=== PATIENT | male | born 1960 | race Two or more races ===

== ENCOUNTER 2017-04-19 06:05 | Emergency (ER) | payer OTHER ==
[~2017-04-19] VITALS: Ht 170.2 cm; Wt 81.6 kg
[~2017-04-19 06:05] MED LIST: AMOXICILLIN500 MG ORAL; MYLANTA30 M1 PO; RANITIDINE HCL150 MG ORAL; TUMS200 M1 PO
[2017-04-19] MEDS ORDERED: NKM (06:16)
[2017-04-19 06:23] VITALS: BP 134/95
[2017-04-19 06:35] LABS: APPEARANCE,URINE CLEAR; BILIRUBIN, URINE NEGATIVE (NEGATIVE); COLOR,URINE PALE YELLOW; GLUCOSE, URINE (UA) NEGATIVE (NEGATIVE); KETONES,URINE NEGATIVE (NEGATIVE); LEUKOCYTE ESTERASE ,URINE 1+ (NEGATIVE); NITRITE,URINE NEGATIVE (NEGATIVE); PH,URINE 8 (4.5-8.0); PROTEIN,URINE NEGATIVE (NEGATIVE); UROBILINOGEN,URINE NORMAL MG/DL (0.0-1.0)
[2017-04-19 06:40] LABS: BASOPHILS % (AUTO) 0.8 % (0.0-2.0); HEMATOCRIT 40.1 % (42.0-52.0); HEMOGLOBIN 13.1 G/DL (14.2-18.0); LYMPHOCYTES % (AUTO) 20.1 % (20.0-45.0); MEAN CORPUSCULAR VOLUME 90 FL (80-99); MONOCYTES % (AUTO) 10.9 % (1.0-10.0); NEUTROPHILS % (AUTO) 65.1 % (45.0-75.0); PLATELET COUNT 508 K/UL (150-450); RED BLOOD COUNT 4.46 M/UL (4.70-6.10); WHITE BLOOD COUNT 6.9 K/UL (4.8-10.8)
[2017-04-19 06:54] LABS: ALANINE AMINOTRANSFERASE 23 U/L (12-78); ALBUMIN 2.9 G/DL (3.4-5.0); ALBUMIN/GLOBULIN RATIO 0.5 (1.0-2.7); ALKALINE PHOSPHATASE 91 U/L (46-116); ANION GAP 8 mmol/L (5-15); ASPARTATE AMINO TRANSFERASE 22 U/L (15-37); BILIRUBIN,TOTAL 0.4 MG/DL (0.2-1.0); BLOOD UREA NITROGEN 9 mg/dL (7-18); CALCIUM 8.7 MG/DL (8.5-10.1); CARBON DIOXIDE 28 MMOL/L (21-32); CHLORIDE 101 MMOL/L (98-107); POTASSIUM 3.5 MMOL/L (3.5-5.1); SODIUM 137 MMOL/L (136-145)
--- NOTE | 2017-04-19 07:07 | Emergency Room Report ---
History of Present Illness General Chief Complaint: Male Urogenital Problems Source: Patient Present Illness HPI Patient presents with complaints of pressure in the suprapubic area he reports that he is able to void and then he feels that he has to void again soon after Denies any flank pain Denies any chest pain or shortness of breath denies any burning sensation Patient reports that the symptom has been ongoing for the past several weeks Points to the suprapubic flaring up bilaterally 3/10 pressure-like sensation Allergies: Coded Allergies: No Known Allergies (Unverified , 05/27/14) Patient History Past Medical History: see triage record Pertinent Family History: none Reviewed Nursing Documentation: PMH: Agreed, PSxH: Agreed Nursing Documentation-PMH Past Medical History: No Stated History Hx Hypertension: Yes Hx Gastrointestinal Problems: Yes - Heartburn Review of Systems All Other Systems: negative except mentioned in HPI Physical Exam Vital Signs Date Time Temp Pulse Resp B/P (MAP) Pulse Ox O2 Delivery O2 Flow Rate FiO2 04/19/17 06:12 98.8 105 16 142/105 96 Room Air Sp02 EP Interpretation: reviewed, normal General Appearance: well appearing, no apparent distress Head: normocephalic, atraumatic Eyes: bilateral eye PERRL, bilateral eye EOMI ENT: hearing grossly normal, normal pharynx, TMs + canals normal, uvula midline Neck: full range of motion, supple, no meningismus, no bony tend Respiratory: lungs clear, normal breath sounds, no rhonchi, no respiratory distress, no retraction, no accessory muscle use Cardiovascular #1: normal peripheral pulses, regular rate, rhythm, no edema, no gallop, no JVD, no murmur Gastrointestinal: normal bowel sounds, no mass, no organomegaly, non-distended , no guarding, no hernia, no pulsatile mass, no rebound, other - Uncomfortable on palpation of the mid suprapubic area Genitourinary: no CVA tenderness Musculoskeletal: normal inspection Neurologic: oriented x3, responsive, 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, motor strength/ tone normal, sensory intact Psychiatric: mood/affect normal Skin: normal color, no rash, warm/dry, palpation normal Lymphatic: normal inspection, no adenopathy Medical Decision Making Diagnostic Impression: Primary Impression: UTI (urinary tract infection) Additional Impressions: Urinary frequency Abdominal pain ER Course With the history exam and presentation, multiple differentials considered, including but not limited to appendicitis, gastritis, cholecystitis, diverticulitis Patient's symptoms appear to be mainly suprapubic However given the discomfort in the presentation lack of any obvious infection CAT scan imaging was done Does not show any obvious acute pathology patient requires close followup also evaluation of possible prostate pathology including infection versus cancer The patient stable for close followup, Labs Test 04/19/17 06:15 04/19/17 06:30 Urine Color Pale yellow Urine Appearance Clear Urine pH 8 (4.5-8.0) Urine Specific [place] 1.010 (1.005-1.035) Urine Protein Negative (NEGATIVE) Urine Glucose (UA) Negative (NEGATIVE) Urine Ketones Negative (NEGATIVE) Urine Occult Blood 2+ (NEGATIVE) Urine Nitrite Negative (NEGATIVE) Urine Bilirubin Negative (NEGATIVE) Urine Urobilinogen Normal MG/DL (0.0-1.0) Urine Leukocyte Esterase 1+ (NEGATIVE) Urine RBC 2-4 /HPF (0 - 0) Urine WBC 0-2 /HPF (0 - 0) Urine Squamous Epithelial Cells Occasional /LPF Urine Bacteria Occasional /HPF (NONE) White Blood Count 6.9 K/UL (4.8-10.8) Red Blood Count 4.46 M/UL (4.70-6.10) Hemoglobin 13.1 G/DL (14.2-18.0) Hematocrit 40.1 % (42.0-52.0) Mean Corpuscular Volume 90 FL (80-99) Mean Corpuscular Hemoglobin 29.5 PG (27.0-31.0) Mean Corpuscular Hemoglobin Concent 32.7 G/DL (32.0-36.0) Red Cell Distribution Width 11.0 % (11.6-14.8) Platelet Count 508 K/UL (150-450) Mean Platelet Volume 4.7 FL (6.5-10.1) Neutrophils (%) (Auto) 65.1 % (45.0-75.0) Lymphocytes (%) (Auto) 20.1 % (20.0-45.0) Monocytes (%) (Auto) 10.9 % (1.0-10.0) Eosinophils (%) (Auto) 3.0 % (0.0-3.0) Basophils (%) (Auto) 0.8 % (0.0-2.0) Sodium Level 137 MMOL/L (136-145) Potassium Level 3.5 MMOL/L (3.5-5.1) Chloride Level 101 MMOL/L (98-107) Carbon Dioxide Level 28 MMOL/L (21-32) Anion Gap 8 mmol/L (5-15) Blood Urea Nitrogen 9 mg/dL (7-18) Creatinine 1.0 MG/DL (0.55-1.30) Estimat Glomerular Filtration Rate > 60 mL/min (>60) Glucose Level 96 MG/DL (74-106) Calcium Level 8.7 MG/DL (8.5-10.1) Total Bilirubin 0.4 MG/DL (0.2-1.0) Aspartate Amino Transf (AST/SGOT) 22 U/L (15-37) Alanine Aminotransferase (ALT/SGPT) 23 U/L (12-78) Alkaline Phosphatase 91 U/L (46-116) Total Protein 8.4 G/DL (6.4-8.2) Albumin 2.9 G/DL (3.4-5.0) Globulin 5.5 g/dL Albumin/Globulin Ratio 0.5 (1.0-2.7) CT/MRI/US Diagnostic Results CT/MRI/US Diagnostic Results : Impression CT abdomen pelvisImpression: No acute findings in the abdomen identified. Small bilateral pleural effusions Small pericardial effusion. Hiatal hernia Small right inguinal hernia containing fat Last Vital Signs Date Time Temp Pulse Resp B/P (MAP) Pulse Ox O2 Delivery O2 Flow Rate FiO2 04/19/17 06:23 98.8 107 27 134/95 99 Room Air Status: improved Disposition: HOME, SELF-CARE Condition: Improved Scripts Tamsulosin HCl (Flomax) 0.4 Mg Cap.er.24h 0.4 MG ORAL DAILY for 5 Days, CAP Prov: GUMARO RICH D.O. 04/19/17 Trimethoprim/Sulfamethoxazole 160/800* (BACTRIM DS TABLET*) 1 Each Tablet 1 TAB ORAL Q12H, #14 TAB 0 Refills Prov: GUMARO RICH D.O. 04/19/17 Referrals: NOT CHOSEN IPA/MD,REFERRING (PCP) Additional Instructions: Patient is provided with the discharge instructions notified to follow up with primary doctor in the next 2-3 days otherwise return to the er with any worsening symptoms. Please note that this report is being documented using DRAGON technology. This can lead to erroneous entry secondary to incorrect interpretation by the dictating instrument. GUMARO RICH D.O. Apr 19, 2017 07:07
[2017-04-19 07:37] VITALS: BP 122/94
[2017-04-19] MEDS ORDERED: FLOMAX0.4 MG ORAL (08:45)
[2017-04-19] MEDS ORDERED: BACTRIM DS TAB1 EAC1 ORAL (08:45)
[2017-04-19 08:56] VITALS: BP 123/95
--- NOTE | 2017-04-19 09:48 | Diagnostic Imaging Report ---
Indication: Abdominal pain Technique: Continuous helical transaxial imaging of the abdomen and pelvis was obtained from the lung bases to the pubic symphysis. No intravenous contrast was administered. Coronal 2-D reformats were also obtained. Total Dose length Product (DLP): [address] Dose Index Volume (CTDIvol): 2.15, 15.23 mGy Comparison: none Findings: Small bilateral pleural effusions are present. There is a small pericardial effusion present. Small hiatal hernia is present. There is no nephrolithiasis or hydronephrosis. There is a mild amount of perinephric stranding nonspecific in nature. Small nodes are seen in the right lower quadrant mesentery. The appendix is normal. No free fluid or free air or evidence of bowel obstruction demonstrated. Urinary bladder is unremarkable. There is a small right inguinal hernia containing fat. Impression: No acute findings in the abdomen identified. Small bilateral pleural effusions Small pericardial effusion. Hiatal hernia Small right inguinal hernia containing fat The CT scanner at [facility] is accredited by the [employer] and the scans are performed using dose optimization techniques as appropriate to a performed exam including Automatic Exposure control.
--- NOTE | 2017-04-19 09:48 | Diagnostic Imaging Report ---
Indication: Abdominal pain Technique: Continuous helical transaxial imaging of the abdomen and pelvis was obtained from the lung bases to the pubic symphysis. No intravenous contrast was administered. Coronal 2-D reformats were also obtained. Total Dose length Product (DLP): [address] Dose Index Volume (CTDIvol): 2.15, 15.23 mGy Comparison: none Findings: Small bilateral pleural effusions are present. There is a small pericardial effusion present. Small hiatal hernia is present. There is no nephrolithiasis or hydronephrosis. There is a mild amount of perinephric stranding nonspecific in nature. Small nodes are seen in the right lower quadrant mesentery. The appendix is normal. No free fluid or free air or evidence of bowel obstruction demonstrated. Urinary bladder is unremarkable. There is a small right inguinal hernia containing fat. Impression: No acute findings in the abdomen identified. Small bilateral pleural effusions Small pericardial effusion. Hiatal hernia Small right inguinal hernia containing fat The CT scanner at [facility] is accredited by the [employer] and the scans are performed using dose optimization techniques as appropriate to a performed exam including Automatic Exposure control.
== END 2017-04-19 09:01 | disposition home or self-care (01) ==
LOC: EMR 06:49
DX: N39.0 Urinary tract infection, site not specified (principal); R35.0 Frequency of micturition; R10.30 Lower abdominal pain, unspecified; I10 Essential (primary) hypertension; K44.9 Diaphragmatic hernia without obstruction or gangrene; J90 Pleural effusion, not elsewhere classified; K40.90 Unilateral inguinal hernia, without obstruction or gangrene, not specified as recurrent
CPT/HCPCS: 36415; 74176; 80053; 81003; 85025; 99284

== ENCOUNTER 2017-12-06 23:34 | Emergency (ER) | payer OTHER ==
[~2017-12-06] VITALS: Ht 167.6 cm; Wt 85.7 kg
[~2017-12-06 23:34] MED LIST changes: +BACTRIM DS TAB1 EAC1 ORAL; +FLOMAX0.4 MG ORAL; +NKM
[2017-12-06] MEDS ORDERED: IBUPROFEN600 MG ORAL (23:57)
[2017-12-06] MEDS ORDERED: VALACYCLOVIR500 MG ORAL (23:57)
--- NOTE | 2017-12-06 23:57 | Emergency Room Report ---
History of Present Illness General Chief Complaint: General Complaint Source: Patient Present Illness HPI This a 57-year-old male with a history of hypertension. He presents with chief complaint of burning sensation in his body in a rash. Onset for last 3 days. No fever chills but no nausea no vomiting. Not itching. Never had this problem before. Nothing made it better. Nothing made it worse. Allergies: Coded Allergies: No Known Allergies (Unverified , 05/27/14) Patient History Past Medical History: see triage record, old chart reviewed, HTN Past Surgical History: other Pertinent Family History: none Social History: Denies: smoking Immunizations: other Reviewed Nursing Documentation: PMH: Agreed; PSxH: Agreed Nursing Documentation-PMH Hx Hypertension: Yes Hx Gastrointestinal Problems: Yes - Heartburn Review of Systems Eye: Denies: eye pain, blurred vision ENT: Denies: ear pain, nose congestion, throat swelling Respiratory: Denies: cough, shortness of breath Cardiovascular: Denies: chest pain, palpitations Gastrointestinal: Denies: abdominal pain, diarrhea, nausea, vomiting Musculoskeletal: Denies: back pain, joint pain Skin: Reports: rash Neurological: Denies: headache, numbness Endocrine: Denies: increased thirst, increased urine Hematologic/Lymphatic: Denies: easy bruising All Other Systems: negative except mentioned in HPI Physical Exam Vital Signs Date Time Temp Pulse Resp B/P (MAP) Pulse Ox O2 Delivery O2 Flow Rate FiO2 12/06/17 23:38 98.4 85 18 154/106 98 Room Air 98.4 vitals normal except for hypertension Sp02 EP Interpretation: reviewed, normal General Appearance: well appearing, no apparent distress, alert Head: normocephalic, atraumatic Eyes: bilateral eye PERRL, bilateral eye EOMI ENT: hearing grossly normal, normal pharynx Neck: full range of motion, supple, no meningismus Respiratory: chest non-tender, lungs clear, normal breath sounds Cardiovascular #1: regular rate, rhythm, no murmur Gastrointestinal: normal bowel sounds, non tender, no mass, no organomegaly, no bruit, non-distended Musculoskeletal: back normal, gait/station normal, normal range of motion Neurologic: alert, oriented x3 Psychiatric: mood/affect normal Skin: warm/dry, rash - Patient with a panic rash along the T8 distribution Medical Decision Making Diagnostic Impression: Primary Impression: Shingles Qualified Codes: B02.9 - Zoster without complications ER Course patient with zoster. No complications. Last Vital Signs Date Time Temp Pulse Resp B/P (MAP) Pulse Ox O2 Delivery O2 Flow Rate FiO2 12/06/17 23:38 98.4 85 18 154/106 98 Room Air 98.4 Status: unchanged Disposition: HOME, SELF-CARE Condition: Stable Scripts Ibuprofen* (MOTRIN*) 600 Mg Tablet 600 MG ORAL THREE TIMES A DAY, #30 TAB 0 Refills Prov: CALLUM CORDON M.D. 12/06/17 Valacyclovir Hcl* (VALTREX*) 500 Mg Tablet 1000 MG ORAL TID for 7 Days, TAB Prov: CALLUM CORDON M.D. 12/06/17 Additional Instructions: Follow-up with your doctor in 7 days. Return if symptom worsen. CALLUM CORDON M.D. Dec 06, 2017 23:57
[2017-12-07 00:22] VITALS: BP 154/106
[2017-12-07 00:26] VITALS: BP 154/106
== END 2017-12-07 00:26 | disposition home or self-care (01) ==
LOC: EMR 23:55
DX: B02.9 Zoster without complications (principal); I10 Essential (primary) hypertension
CPT/HCPCS: 99284

== ENCOUNTER 2018-04-10 08:33 | Inpatient (IN) | payer OTHER ==
[~2018-04-10] VITALS: Ht 165.1 cm; Wt 81.6 kg
[~2018-04-10 08:33] MED LIST changes: +IBUPROFEN600 MG ORAL; +VALACYCLOVIR500 MG ORAL
[2018-04-10] MEDS ORDERED: GABAPENTIN300 MG ORAL (08:44)
[2018-04-10] MEDS ORDERED: Capsaicin 0.075% Cream TOPIC STA (08:57)
[2018-04-10] MEDS ORDERED: Nitroglycerin 2% oint pkt TOPIC ONE (09:00)
--- NOTE | 2018-04-10 09:09 | Emergency Room Report ---
History of Present Illness General Chief Complaint: Dizziness Source: Patient, Family Member Present Illness HPI Patient was in sikh today and nearly passed out. He felt diaphoretic and weak. He was standing at the time and sat down. It lasted for quite a few minutes. The he had slight nausea but not much. Last night he felt nauseated but denies having chest pain. The patient had treatment for shingles on the left side of his chest 4 months ago. He still has 4-5/10 pain there. There is chest pain however that is also exertional and intermittent. He's been taking gabapentin but tries not to take that medication. He also has exertional chest pain when he works. The patient is a junior manufacturing engineer. This is worse when it's hot out. He occasionally has to rest when he is working to relieve the pain in his left side of his chest. Risk factors for cardiac disease: Family history, high cholesterol and intermittent smoking. He denies hypertension and diabetes. His father had his first heart attack at age 50 and in his 60s. The patient recently saw a back end architect at the recommendation of his private physician. He had a Holter monitor done at that time (5 months ago). He had a treadmill this year and said it was good. No fevers, cough. No vomiting, change in bowels. No dysuria. The shingles pain keeps him awake at night. He has not seen a pain specialist. He is sensitive to medication. It has been 4 months of pain from the shingles. He denies depression, however, he is worried the pain will not be controlled. Allergies: Coded Allergies: No Known Allergies (Unverified , 05/27/14) Patient History Past Medical History: see triage record Social History: Reports: smoking Social History Narrative , ortiz Reviewed Nursing Documentation: PMH: Agreed; PSxH: Agreed Nursing Documentation-PMH Past Medical History: No History, Except For Hx Hypertension: Yes Hx Gastrointestinal Problems: Yes - Heartburn Review of Systems All Other Systems: negative except mentioned in HPI Physical Exam Vital Signs Date Time Temp Pulse Resp B/P (MAP) Pulse Ox O2 Delivery O2 Flow Rate FiO2 04/10/18 08:38 97.5 76 18 140/100 98 Room Air Sp02 EP Interpretation: reviewed, normal General Appearance: well appearing, no apparent distress, GCS 15 Head: normocephalic Eyes: bilateral eye normal inspection, bilateral eye PERRL ENT: moist mucus membranes Neck: supple Respiratory: lungs clear, normal breath sounds Cardiovascular #1: regular rate, rhythm Cardiovascular #2: 2+ radial (R) Gastrointestinal: normal inspection, normal bowel sounds, non tender, no mass, non-distended Musculoskeletal: back normal, gait/station normal, normal range of motion Neurologic: alert, oriented x3, grossly normal Psychiatric: depressed affect Skin: warm/dry, other - post shingles skin changes L chest Medical Decision Making Diagnostic Impression: Primary Impression: Near syncope Additional Impressions: Chest pain Qualified Codes: R07.9 - Chest pain, unspecified Post-shingles neuralgia ER Course Patient presents with near syncope, left-sided chest pain. Differential includes acute myocardial infarction, arrhythmia, pulmonary embolus, post zoster neuralgia, stable angina, vasovagal amongst others. Patient will be evaluated with EKG, chest x-ray and labs. The patient will be given aspirin and nitroglycerin paste. In addition he'll be treated with Zostrix cream in the area of the shingles. EKG sinus rhythm possible left atrial enlargement left axis deviation with nonspecific ST-T wave changes flattened T waves inferiorly. CBC and CMP are normal. Initial troponin is negative. D-dimer was negative also. Chest x-ray clear. Patient not orthostatic. He still complaining about pain at the site with a herpes rash was. Zostrix cream is applied. He says that is causing burning in the area where the shingles was. Tylenol is also given. Due to the history of recurrent chest pain with exertion, palpitations and near syncope the patient is admitted for cardiac monitoring and repeat troponins determinations. Cardiology consultation is expected along with a probable echocardiography. Patient admitted telemetry Dr. Robert. Laboratory Tests Test 04/10/18 09:02 White Blood Count 5.0 K/UL (4.8-10.8) Red Blood Count 5.67 M/UL (4.70-6.10) Hemoglobin 16.7 G/DL (14.2-18.0) Hematocrit 48.9 % (42.0-52.0) Mean Corpuscular Volume 86 FL (80-99) Mean Corpuscular Hemoglobin 29.5 PG (27.0-31.0) Mean Corpuscular Hemoglobin Concent 34.1 G/DL (32.0-36.0) Red Cell Distribution Width 10.8 % (11.6-14.8) L Platelet Count 224 K/UL (150-450) Mean Platelet Volume 5.4 FL (6.5-10.1) L Neutrophils (%) (Auto) 53.8 % (45.0-75.0) Lymphocytes (%) (Auto) 31.9 % (20.0-45.0) Monocytes (%) (Auto) 8.8 % (1.0-10.0) Eosinophils (%) (Auto) 3.7 % (0.0-3.0) H Basophils (%) (Auto) 1.8 % (0.0-2.0) D-Dimer 0.19 mg/L FEU (0.00-0.49) Sodium Level 138 MMOL/L (136-145) Potassium Level 4.2 MMOL/L (3.5-5.1) Chloride Level 104 MMOL/L (98-107) Carbon Dioxide Level 26 MMOL/L (21-32) Anion Gap 8 mmol/L (5-15) Blood Urea Nitrogen 17 mg/dL (7-18) Creatinine 1.0 MG/DL (0.55-1.30) Estimate Glomerular Filtration Rate > 60 mL/min (>60) Glucose Level 83 MG/DL (74-106) Calcium Level 8.6 MG/DL (8.5-10.1) Total Bilirubin 0.2 MG/DL (0.2-1.0) Aspartate Amino Transferase (AST) 22 U/L (15-37) Alanine Aminotransferase (ALT) 18 U/L (12-78) Alkaline Phosphatase 52 U/L (46-116) Total Creatine Kinase 155 U/L (26-308) Troponin I 0.000 ng/mL (0.000-0.056) Pro-B-Type Natriuretic Peptide 77 pg/mL (0-125) Total Protein 8.0 G/DL (6.4-8.2) Albumin 3.8 G/DL (3.4-5.0) Globulin 4.2 g/dL Albumin/Globulin Ratio 0.9 (1.0-2.7) L EKG Diagnostic Results Rate: normal Rhythm: NSR ST Segments: no acute changes - LAE Rhythm Strip Diag. Results EP Interpretation: yes Rhythm: NSR, no PVC's, no ectopy Chest X-Ray Diagnostic Results Chest X-Ray Diagnostic Results : Chest X-Ray Ordered: Yes # of Views/Limited/Complete: 1 View Indication: Chest Pain Interpretation: no consolidation, no effusion, no pneumothorax Impression: No acute disease Electronically Signed by: Electronically signed by Norbert Quijano MD Last Vital Signs Date Time Temp Pulse Resp B/P (MAP) Pulse Ox O2 Delivery O2 Flow Rate FiO2 04/10/18 20:20 78 18 Room Air 21 04/10/18 20:00 97.9 140/86 (104) 94 Status: improved Disposition: ADMITTED INPATIENT Condition: Serious Norbert Quijano MD Apr 10, 2018 09:09
[2018-04-10 09:27] VITALS: BP 140/98
[2018-04-10 09:27] LABS: BASOPHILS % (AUTO) 1.8 % (0.0-2.0); EOSINOPHILS % (AUTO) 3.7 % (0.0-3.0); HEMATOCRIT 48.9 % (42.0-52.0); HEMOGLOBIN 16.7 G/DL (14.2-18.0); LYMPHOCYTES % (AUTO) 31.9 % (20.0-45.0); MEAN CORPUSCULAR VOLUME 86 FL (80-99); MONOCYTES % (AUTO) 8.8 % (1.0-10.0); NEUTROPHILS % (AUTO) 53.8 % (45.0-75.0); PLATELET COUNT 224 K/UL (150-450); RED BLOOD COUNT 5.67 M/UL (4.70-6.10); RED CELL DISTRIBUTION WIDTH 10.8 % (11.6-14.8)
[2018-04-10 09:33] LABS: ANION GAP 8 mmol/L (5-15); BLOOD UREA NITROGEN 17 mg/dL (7-18); CALCIUM 8.6 MG/DL (8.5-10.1); CARBON DIOXIDE 26 MMOL/L (21-32); CHLORIDE 104 MMOL/L (98-107); POTASSIUM 4.2 MMOL/L (3.5-5.1); SODIUM 138 MMOL/L (136-145)
[2018-04-10 09:44] LABS: ALANINE AMINOTRANSFERASE 18 U/L (12-78); ALBUMIN 3.8 G/DL (3.4-5.0); ALBUMIN/GLOBULIN RATIO 0.9 (1.0-2.7); ALKALINE PHOSPHATASE 52 U/L (46-116); ASPARTATE AMINO TRANSFERASE 22 U/L (15-37); BILIRUBIN,TOTAL 0.2 MG/DL (0.2-1.0); CREATINE KINASE 155 U/L (26-308)
[2018-04-10 09:45] VITALS: BP_SYST 134; BP_SYST 138; BP_SYST 146; BP_DIAS 104; BP_DIAS 109; BP_DIAS 94
--- NOTE | 2018-04-10 10:15 | Diagnostic Imaging Report ---
EXAM: XR Chest, 1 View CLINICAL HISTORY: Chest pain TECHNIQUE: Frontal view of the chest. COMPARISON: Chest x-ray dated 02/01/15 FINDINGS: Lungs: Unremarkable. The lungs appear clear. No confluent pulmonary opacities. Pleural space: Unremarkable. The costophrenic angles are sharp. No visible pneumothorax. Heart: Unremarkable. No cardiomegaly. Mediastinum: Unremarkable. Bones/joints: Unremarkable. Tubes, lines and devices: EKG leads overlie the thorax. IMPRESSION: No acute findings.
[2018-04-10 10:34] VITALS: BP 134/92
[2018-04-10] MEDS ORDERED: Miralax 17gm pkt ORAL PRN (11:45)
[2018-04-10] MEDS ORDERED: dilTIAZem HCl 25mg/5ml Inj IV PRN (11:45)
[2018-04-10] MEDS ORDERED: Morphine Sulfate 2mg/ml Inj IVP PRN (11:45)
[2018-04-10] MEDS ORDERED: Albuterol/Ipratropium 3ml neb HHN PRN (11:45)
[2018-04-10] MEDS ORDERED: Enalaprilat 2.5mg/2ml Inj IV PRN (11:45)
[2018-04-10 12:00] VITALS: BP 133/90
[2018-04-10] MEDS ORDERED: Nitroglycerin Subl 0.4mg tab SL PRN (12:00)
--- NOTE | 2018-04-10 14:25 | Cardiology Report ---
APPROVED REPORT EXAM: Two-dimensional and M-mode echocardiogram with Doppler and color Doppler. INDICATION LV FUNCTION M-Mode DIMENSIONS IVSd1.4 (0.7-1.1cm)Left Atrium (MM)3.6 (1.6-4.0cm) LVDd4.2 (3.5-5.6cm)Aortic Root4.0 (2.0-3.7cm) PWd1.6 (0.7-1.1cm)Aortic Cusp Exc.1.8 (1.5-2.0cm) IVSs2.1 cm LVDs2.7 (2.5-4.0cm) PWs1.5 cm Normal left ventricular chamber size, systolic function and wall motion. Left ventricular ejection fraction estimated to be 60-65 No evidence of left ventricular hypertrophy . No evidence of pericardial effusion. All other cardiac chamber sizes are within normal limits. Focal aortic valve sclerosis with adequate cusp excursion. Thickened mitral valve leaflets with normal excursion. Mitral annulus and aortic root calcification. Pulmonic valve not well visualized. Normal tricuspid valve structure. IVC at normal size without physiologic collapse. A color flow and spectral Doppler study was performed and revealed: No aortic insufficiency . Trace mitral regurgitation. Mitral diastolic velocities suggest reduced left ventricular relaxation c/w mild LV diastolic dysfunction (Grade I ). Trace tricuspid regurgitation. Tricuspid systolic velocities suggests peak right ventricular systolic pressure of 14 mmHg. No Pulmonic regurgitation present.
--- NOTE | 2018-04-10 14:32 | Cardiology Progress Note ---
Assessment/Plan Assessment/Plan dicated [id number] Objective Last 24 Hour Vital Signs Date Time Temp Pulse Resp B/P (MAP) Pulse Ox O2 Delivery O2 Flow Rate FiO2 04/10/18 12:00 97.0 75 21 133/90 (104) 97 04/10/18 12:00 69 04/10/18 11:58 Room Air 04/10/18 11:48 76 16 140/90 Room Air 04/10/18 10:34 70 17 134/92 98 Room Air 70 04/10/18 10:31 98.4 04/10/18 09:45 66 134/94 72 138/104 77 146/109 04/10/18 09:27 98.4 77 16 140/98 100 Room Air 04/10/18 09:27 77 16 Room Air 04/10/18 09:18 140/100 04/10/18 08:38 97.5 76 18 140/100 98 Room Air Laboratory Tests Test 04/10/18 09:02 04/10/18 12:20 White Blood Count 5.0 K/UL (4.8-10.8) Red Blood Count 5.67 M/UL (4.70-6.10) Hemoglobin 16.7 G/DL (14.2-18.0) Hematocrit 48.9 % (42.0-52.0) Mean Corpuscular Volume 86 FL (80-99) Mean Corpuscular Hemoglobin 29.5 PG (27.0-31.0) Mean Corpuscular Hemoglobin Concent 34.1 G/DL (32.0-36.0) Red Cell Distribution Width 10.8 % (11.6-14.8) L Platelet Count 224 K/UL (150-450) Mean Platelet Volume 5.4 FL (6.5-10.1) L Neutrophils (%) (Auto) 53.8 % (45.0-75.0) Lymphocytes (%) (Auto) 31.9 % (20.0-45.0) Monocytes (%) (Auto) 8.8 % (1.0-10.0) Eosinophils (%) (Auto) 3.7 % (0.0-3.0) H Basophils (%) (Auto) 1.8 % (0.0-2.0) D-Dimer 0.19 mg/L FEU (0.00-0.49) Sodium Level 138 MMOL/L (136-145) Potassium Level 4.2 MMOL/L (3.5-5.1) Chloride Level 104 MMOL/L (98-107) Carbon Dioxide Level 26 MMOL/L (21-32) Anion Gap 8 mmol/L (5-15) Blood Urea Nitrogen 17 mg/dL (7-18) Creatinine 1.0 MG/DL (0.55-1.30) Estimat Glomerular Filtration Rate > 60 mL/min (>60) Glucose Level 83 MG/DL (74-106) Calcium Level 8.6 MG/DL (8.5-10.1) Total Bilirubin 0.2 MG/DL (0.2-1.0) Aspartate Amino Transf (AST/SGOT) 22 U/L (15-37) Alanine Aminotransferase (ALT/SGPT) 18 U/L (12-78) Alkaline Phosphatase 52 U/L (46-116) Total Creatine Kinase 155 U/L (26-308) Troponin I 0.000 ng/mL (0.000-0.056) 0.000 ng/mL (0.000-0.056) Pro-B-Type Natriuretic Peptide 77 pg/mL (0-125) Total Protein 8.0 G/DL (6.4-8.2) Albumin 3.8 G/DL (3.4-5.0) Globulin 4.2 g/dL Albumin/Globulin Ratio 0.9 (1.0-2.7) Liu Davison MD Apr 10, 2018 14:32
[2018-04-10] MEDS ORDERED: Losartan 50mg tab ORAL SCH (15:30)
[2018-04-10 16:00] VITALS: BP 135/88
[2018-04-10 20:00] VITALS: BP 140/86
[2018-04-10] MEDS: Heparin 5000 units/ml inj SUBQ SCH (21:44)
[2018-04-11] VITALS: BP 134/90
--- NOTE | 2018-04-11 02:45 | Consultation ---
DATE OF CONSULTATION: 04/10/2018 CARDIOLOGY CONSULTATION REFERRING PHYSICIAN: 1. Cortez Robert D.O. 2. Sree Rivera M.D. REASON FOR REFERRAL: Chest pain. HISTORY OF PRESENT ILLNESS: This is a 58-year-old male who tells me that over the past week he has had episodes of dizziness that feel like as if like moving. Denies any spinning sensation. Denies any lightheadedness. This has been ongoing on several occasions. He had presented to the emergency room. The chief complaint listed at admission is chest discomfort, although the patient absolutely denies any chest pain to me. No pain, pressure tightness, or heaviness in the chest. Emergency room physician notes the patient was at [employer] and nearly passed out. Apparently, he was manic at the time he sat down. It lasted for a few minutes. He did have slight nausea, but not much. The patient does have a history of shingles associated with pain in the shingles area for some time now, but nothing exertional, being treated with medications for that. He absolutely denies any pain, pressure, tightness, or heaviness in his chest. He does have three pillows that he uses basically for comfort and for the heartburn symptoms. He does not have any PND. Does not have any orthopnea. Does not have any dizziness on standing. No heart pounding or palpitations. PAST MEDICAL HISTORY: Positive for high cholesterol and high blood pressure. Denies any diabetes. No history of heart attack, cancer, stroke, hepatitis, tuberculosis, asthma, emphysema, ulcers, kidney problems, liver problems, thyroid problems, anemia, arthritis, HIV, or blood clots anywhere. SOCIAL HISTORY: He does not smoke at this time. denies any drug use. He works as a pre sales technical consultant. He is very active and he walks around. He does not really have any pain or pressure when he walks around anywhere in his chest, although when he goes uphill he feels that he is somewhat short of breath. REVIEW OF SYSTEMS: GASTROINTESTINAL: Negative. GENITOURINARY: Negative. PULMONARY: Occasional wheezing. CONSTITUTIONAL: Negative. NEUROLOGICAL: No blurred vision or double vision. No numbness or paralysis. PHYSICAL EXAMINATION: GENERAL: Shows to be middle-aged gentleman, in no respiratory distress. NECK: Supple. No jugular venous distention. No abdominojugular reflux noted. LUNGS: Clear to auscultation and percussion. CARDIAC: S1 is normal. S2 is normal. Regular rate and rhythm. No heaves, thrills, or gallops noted. ABDOMEN: Soft, nontender. Positive bowel sounds. EXTREMITIES: There is no edema. NEUROLOGIC: He is awake, alert, and responsive. LABORATORY AND DIAGNOSTIC DATA: Laboratory values, white count of 5, hemoglobin 15.7, and platelet count 224. His sodium 138, potassium 4.2, chloride 104, bicarbonate 26, BUN of 17, creatinine . Two sets of cardiac enzymes are negative. Liver function tests are normal. Coags . D-dimer is 0.19. His other labs and imaging includes chest x-ray that was unremarkable, no acute findings. Echocardiogram which I just personally reviewed, normal left ventricular systolic function, no evidence of significant abnormalities. His electrocardiogram is normal sinus rhythm. No ST or T-wave abnormalities. ASSESSMENT AND PLAN: 1. Dizziness, questionable balance problems versus lightheadedness. 2. Shingles recently with chronic pain related to that. 3. Hypertension. 4. Hyperlipidemia. This patient was seen in cardiac consultation. The patient has no signs or symptoms of coronary syndrome. He actually does not have any chest pain at this time. He should have orthostatic vitals checked. His echocardiogram shows normal left ventricular systolic function. His blood pressure has been anywhere between 134/90 to 146/109. His medications should be adjusted to systolic blood pressure. Gradually orthostatic vitals will be checked. He will be monitored on telemetry. I will not order any further testing for his coronaries as he does not have any symptoms to suggest that being an issue. We will follow the patient along with you. Liu Gambino M.D. DR: Mohini JOB#: [id number] CC:
[2018-04-11 04:00] VITALS: BP 129/82
[2018-04-11 06:48] LABS: EOSINOPHILS % (AUTO) 4.4 % (0.0-3.0); HEMATOCRIT 45.9 % (42.0-52.0); HEMOGLOBIN 15.7 G/DL (14.2-18.0); MEAN CORPUSCULAR VOLUME 88 FL (80-99); MONOCYTES % (AUTO) 10.1 % (1.0-10.0); NEUTROPHILS % (AUTO) 51.6 % (45.0-75.0); PLATELET COUNT 269 K/UL (150-450); RED BLOOD COUNT 5.24 M/UL (4.70-6.10); RED CELL DISTRIBUTION WIDTH 10.9 % (11.6-14.8); WHITE BLOOD COUNT 5.7 K/UL (4.8-10.8)
[2018-04-11 07:28] LABS: CHOLESTEROL 215 MG/DL (< 200); HDL CHOLESTEROL 34 MG/DL (40-60); TRIGLYCERIDES 156 MG/DL (30-150)
[2018-04-11 08:00] VITALS: BP 139/90
[2018-04-11] MEDS: Aspirin Baby 81mg ORAL SCH (08:05)
[2018-04-11] MEDS: Losartan 50mg tab ORAL SCH (08:05)
[2018-04-11] MEDS: Heparin 5000 units/ml inj SUBQ SCH ×2 (08:05→20:22)
--- NOTE | 2018-04-11 11:02 | Consultation ---
History of Present Illness General Date patient seen: Apr 11, 2018 Chief Complaint: Dizziness Present Illness HPI 58 year old male with any major PMHx admitted with CC of near syncope. He was in [employer] standing yesterday and nearly passed out. He felt diaphoretic and weak. He had shingles on the left side of his chest 4 months ago. He still has 4-5/ 10 pain there. He still continues to have episodes of chest pain He's been taking gabapentin but tries not to take that medication. He also has exertional chest pain when he works. The patient recently saw a securities dealer at the recommendation of his private physician. He had a Holter monitor done at that time (5 months ago). He had a treadmill this year and said it was good. Pt is admitted to telemetry for further work up. Allergies: Coded Allergies: No Known Allergies (Unverified , 05/27/14) Medication History Scheduled Gabapentin* (Gabapentin*), 300 MG ORAL BEDTIME, (Reported) Ibuprofen* (Motrin*), 600 MG ORAL THREE TIMES A DAY Valacyclovir Hcl* (Valtrex*), 1,000 MG ORAL TID Patient History Healthcare decision maker Resuscitation status Full Code Advanced Directive on File Past Medical/Surgical History Past Medical/Surgical History: (1) Shingles (2) Shingles (herpes zoster) polyneuropathy Review of Systems All Other Systems: negative except mentioned in HPI Physical Exam General Appearance: WD/WN Lines, tubes and drains: peripheral HEENT: normocephalic, atraumatic Neck: non-tender, normal alignment Respiratory/Chest: chest wall non-tender, lungs clear Breasts: no masses Cardiovascular/Chest: normal peripheral pulses Genitourinary/Rectal: normal genital exam, normal rectal exam Last 24 Hour Vital Signs Date Time Temp Pulse Resp B/P (MAP) Pulse Ox O2 Delivery O2 Flow Rate FiO2 04/11/18 09:42 81 18 Room Air 21 04/11/18 09:01 98 107 112 04/11/18 09:00 Room Air 04/11/18 08:05 139/90 04/11/18 08:00 97.4 98 20 139/90 (106) 98 04/11/18 08:00 90 04/11/18 04:00 67 04/11/18 04:00 76 87 95 04/11/18 04:00 98.0 76 20 129/82 (98) 94 04/11/18 00:00 67 04/11/18 00:00 97.0 80 20 134/90 (105) 97 04/10/18 21:00 Room Air 04/10/18 20:20 78 18 Room Air 21 04/10/18 20:00 97.9 86 20 140/86 (104) 94 04/10/18 20:00 86 105 105 04/10/18 20:00 94 04/10/18 16:00 82 04/10/18 16:00 97.1 78 20 135/88 (104) 98 04/10/18 15:27 139/80 04/10/18 14:45 87 97 110 04/10/18 12:00 97.0 75 21 133/90 (104) 97 04/10/18 12:00 69 04/10/18 11:58 Room Air 04/10/18 11:48 76 16 140/90 Room Air Intake and Output 04/10/18 04/11/18 19:00 07:00 Intake Total 1000 ml 120 ml Output Total 0 ml 650 ml Balance 1000 ml -530 ml Intake Oral 120 ml IV Total 1000 ml Output Urine Total 0 ml 650 ml # Voids 2 Laboratory Tests Test 04/10/18 12:20 04/11/18 06:15 Troponin I 0.000 ng/mL (0.000-0.056) 0.000 ng/mL (0.000-0.056) White Blood Count 5.7 K/UL (4.8-10.8) Red Blood Count 5.24 M/UL (4.70-6.10) Hemoglobin 15.7 G/DL (14.2-18.0) Hematocrit 45.9 % (42.0-52.0) Mean Corpuscular Volume 88 FL (80-99) Mean Corpuscular Hemoglobin 29.9 PG (27.0-31.0) Mean Corpuscular Hemoglobin Concent 34.2 G/DL (32.0-36.0) Red Cell Distribution Width 10.9 % (11.6-14.8) L Platelet Count 269 K/UL (150-450) Mean Platelet Volume 5.1 FL (6.5-10.1) L Neutrophils (%) (Auto) 51.6 % (45.0-75.0) Lymphocytes (%) (Auto) 32.0 % (20.0-45.0) Monocytes (%) (Auto) 10.1 % (1.0-10.0) H Eosinophils (%) (Auto) 4.4 % (0.0-3.0) H Basophils (%) (Auto) 2.0 % (0.0-2.0) Prothrombin Time 11.0 SEC (9.30-11.50) Prothromb Time International Ratio 1.0 (0.9-1.1) Activated Partial Thromboplast Time 28 SEC (23-33) C-Reactive Protein, Quantitative < 0.4 mg/dL (0.00-0.90) Triglycerides Level 156 MG/DL (30-150) H Cholesterol Level 215 MG/DL (< 200) H LDL Cholesterol 160 mg/dL (<100) H HDL Cholesterol 34 MG/DL (40-60) L Cholesterol/HDL Ratio 6.3 (3.3-4.4) H Thyroid Stimulating Hormone (TSH) 2.329 uiU/mL (0.358-3.740) Height (Feet): 5 Height (Inches): 5.00 Weight (Pounds): 180 Medications Current Medications Medications (Trade) Dose Ordered Sig/Mary Lou Route PRN Reason Start Time Stop Time Status Last Admin Dose Admin Acetaminophen (Tylenol) 650 mg Q4H PRN ORAL T>100.5 04/10/18 11:45 05/10/18 11:44 04/10/18 18:04 Albuterol/ Ipratropium (Albuterol/ Ipratropium) 3 ml Q4H PRN HHN Shortness of Breath 04/10/18 11:45 04/15/18 11:44 Aspirin (ASA) 162 mg DAILY ORAL 04/11/18 09:00 05/11/18 08:59 04/11/18 08:05 Diltiazem HCl (Cardizem) 10 mg EVERY HOUR PRN IV heart rate more than 120BPM 04/10/18 11:45 05/10/18 11:44 Enalaprilat (Vasotec) 2.5 mg Q6H PRN IV sbp more than 160 04/10/18 11:45 05/10/18 11:44 Gabapentin (Neurontin) 300 mg BEDTIME ORAL 04/10/18 21:00 05/10/18 20:59 04/10/18 21:43 Heparin Sodium (Porcine) (Heparin 5000 units/ml) 5,000 units EVERY 12 HOURS SUBQ 04/10/18 21:00 05/10/18 20:59 04/11/18 08:05 Losartan Potassium (Cozaar) 50 mg DAILY ORAL 04/11/18 09:00 05/11/18 08:59 04/11/18 08:05 Morphine Sulfate (Morphine Sulfate) 2 mg Q4H PRN IVP Severe Pain (Pain Scale 7-10) 04/10/18 11:45 04/17/18 11:44 Nitroglycerin (Ntg) 0.4 mg Q5MIN X 3 DOSES PRN SL Prn Chest Pain 04/10/18 12:00 05/10/18 11:59 Ondansetron HCl (Zofran) 4 mg Q6H PRN IVP Nausea & Vomiting 04/10/18 11:45 05/10/18 11:44 Polyethylene Glycol (Miralax) 17 gm DAILYPRN PRN ORAL Constipation 04/10/18 11:45 05/10/18 11:44 Temazepam (Restoril) 15 mg HSPRN PRN ORAL Insomnia 04/10/18 21:00 04/17/18 20:59 Assessment/Plan Problem List: (1) Near syncope ICD Codes: R55 - Syncope and collapse SNOMED: 389682929 (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 Sree Rivera MD Apr 11, 2018 11:02
--- NOTE | 2018-04-11 11:03 | Diagnostic Imaging Report ---
Indication: Syncope Technique: Contiguous 5 mm thick transaxial imaging of the head obtained in a Siemens Sensation [address] scanner. Soft tissue and bone windows generated. Automatic Exposure Control was utilized. Total Dose length Product (DLP): 1368.[address] Dose Index Volume (CTDIvol): 70.38 mGy Comparison: none Findings: The size and configuration of the cortical sulci, basal cisterns, and ventricles are within normal limits for age. There is no mass effect, midline shift, or edema identified. There is no evidence of acute hemorrhage or abnormal intra-axial or extra-axial fluid collections. The bones and soft tissues are unremarkable. There is a ethmoid mucosal thickening. Impression: No mass effect, edema or acute bleed. Ethmoid sinusitis The CT scanner at [facility] is accredited by the [employer] and the scans are performed using dose optimization techniques as appropriate to a performed exam including Automatic Exposure control.
[2018-04-11 12:00] VITALS: BP 134/78
--- NOTE | 2018-04-11 14:22 | Diagnostic Imaging Report ---
Indication: Dizziness Technique: The head was imaged in a 1.5 Sherry magnet. Sequences obtained include sagittal and axial T1 FLAIR, axial T2 fast spin echo with fat saturation, axial T2 FLAIR, diffusion and ADC map. Comparison: None Findings: The size, contour, and configuration of the sulci, ventricles, and basal cisterns appear normal. Bridges-white differentiation is normal. There is no restricted diffusion. There is no mass effect, midline shift, edema, or hemorrhage. There are no abnormal extra-axial or intra-axial fluid collections. The corpus callosum is unremarkable. The brainstem and cerebellum are unremarkable. The sella is unremarkable. Bone marrow signal within the visualized osseous structures appears age appropriate and unremarkable otherwise. Impression: Negative MRI brain without contrast.
[2018-04-11 16:00] VITALS: BP 130/45
[2018-04-11 20:00] VITALS: BP 134/98
--- NOTE | 2018-04-11 23:30 | History and Physical Report ---
DATE OF ADMISSION: 04/10/2018 TIME: On 04/11/2018 at 1 p.m. CONSULTANTS: 1. Tacho Meade M.D. 2. Sree Rivera M.D. 3. Natanael Lance M.D. CHIEF COMPLAINT: Near-syncope, dizziness, and weakness. BRIEF HISTORY: This is a 58-year-old male who lives at home, yesterday was at [employer] and started having some near-syncopal episode, was dizzy and lightheaded. The patient came to [facility], diagnosed the above and being admitted to telemetry for further care. Slightly anxious in bed, oriented x3, in no acute distress. PAST MEDICAL HISTORY: Includes hypertension, shortness of breath, and shingles. PAST SURGICAL HISTORY: None. PHYSICAL EXAMINATION: GENERAL: Slightly anxious in bed, oriented x3, in no acute distress. VITAL SIGNS: Temperature 97 degrees, pulse 107, respiratory rate 18, and blood pressure 139/90. CARDIOVASCULAR: Without murmurs. LUNGS: Distant and clear. ABDOMEN: Bowel sounds positive. Nontender. Nondistended. EXTREMITIES: No cyanosis, clubbing, or edema. NEUROLOGIC: The patient moves all extremities, slightly weak. LABORATORY AND DIAGNOSTIC DATA: Labs at this time show CBC is normal. BMP is normal. Troponin 0.00 and 0.00. Triglycerides slightly elevated at 156. Cholesterol 215. INR is 1.0 and PTT is 28. MEDICATIONS: Include aspirin, Cozaar, Neurontin, Restoril, heparin, nitroglycerin, albuterol, Tylenol, morphine, Zofran, MiraLAX, Vasotec, and Cardizem. ASSESSMENT: 1. Near-syncope. 2. Dizziness. 3. Hypertension. 4. History of shingles. PLAN: 1. OT, PT, and dietary evaluation. 2. CBC and BMP in the morning. 3. Cardiac workup. 4. Pain control. 5. We will continue to follow the patient medically. Cortez Robert D.O. DR: GERTRUDIS JOB#: [id number] CC:
[2018-04-12] VITALS (7 sets, daily range): BP systolic 111–150; BP diastolic 56–104
[2018-04-12 07:35] LABS: ANION GAP 8 mmol/L (5-15); BLOOD UREA NITROGEN 13 mg/dL (7-18); CALCIUM 8.3 MG/DL (8.5-10.1); CARBON DIOXIDE 26 MMOL/L (21-32); CHLORIDE 106 MMOL/L (98-107); CREATININE 0.9 MG/DL (0.55-1.30); POTASSIUM 3.9 MMOL/L (3.5-5.1); SODIUM 139 MMOL/L (136-145)
[2018-04-12 07:37] LABS: BASOPHILS % (AUTO) 1.5 % (0.0-2.0); EOSINOPHILS % (AUTO) 4.7 % (0.0-3.0); HEMATOCRIT 46.1 % (42.0-52.0); HEMOGLOBIN 16.6 G/DL (14.2-18.0); LYMPHOCYTES % (AUTO) 33.3 % (20.0-45.0); MEAN CORPUSCULAR VOLUME 86 FL (80-99); MONOCYTES % (AUTO) 9.6 % (1.0-10.0); NEUTROPHILS % (AUTO) 50.9 % (45.0-75.0); PLATELET COUNT 270 K/UL (150-450); RED BLOOD COUNT 5.33 M/UL (4.70-6.10); RED CELL DISTRIBUTION WIDTH 10.8 % (11.6-14.8)
[2018-04-12] MEDS: Aspirin Baby 81mg ORAL SCH (08:20)
[2018-04-12] MEDS: Losartan 50mg tab ORAL SCH (08:20)
[2018-04-12] MEDS: Heparin 5000 units/ml inj SUBQ SCH ×2 (08:21→21:00)
--- NOTE | 2018-04-12 09:47 | Pulmonology Progress Note ---
Assessment/Plan Problems: (1) Near syncope (2) Shingles (herpes zoster) polyneuropathy Assessment/Plan MRI of brain reviewed, WNL Echo reviewed CT head reviewed, WNL pt wants to go home Subjective ROS Limited/Unobtainable: No Constitutional: Reports: no symptoms HEENT: Repors: no symptoms Respiratory: Reports: no symptoms Allergies: Coded Allergies: No Known Allergies (Unverified , 05/27/14) Objective Last 24 Hour Vital Signs Date Time Temp Pulse Resp B/P (MAP) Pulse Ox O2 Delivery O2 Flow Rate FiO2 04/12/18 08:57 137/92 (107) 142/94 (110) 138/95 (109) 04/12/18 08:57 108 120 127 04/12/18 08:43 Room Air 04/12/18 08:20 150/104 04/12/18 08:00 97.0 99 16 150/104 (119) 95 04/12/18 08:00 62 04/12/18 04:00 96.8 68 19 128/56 (80) 97 04/12/18 04:00 68 04/12/18 00:00 97.2 82 18 111/62 (78) 97 04/12/18 00:00 75 04/11/18 21:00 85 97 105 04/11/18 21:00 Room Air 04/11/18 20:00 89 04/11/18 20:00 96.2 89 17 134/98 (110) 94 04/11/18 19:00 89 20 Room Air 21 04/11/18 16:00 96.4 84 18 130/45 (73) 100 04/11/18 16:00 80 04/11/18 12:00 84 04/11/18 12:00 98.4 100 20 134/78 (96) 98 Intake and Output 04/11/18 04/12/18 19:00 07:00 Intake Total 730 ml Balance 730 ml Intake Oral 730 ml # Voids 4 3 General Appearance: WD/WN HEENT: normocephalic Respiratory/Chest: chest wall non-tender, lungs clear Cardiovascular: normal peripheral pulses, normal rate Abdomen: normal bowel sounds Extremities: no cyanosis 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 Laboratory Tests 04/12/18 06:31: White Blood Count 6.0, Red Blood Count 5.33, Hemoglobin 16.6, Hematocrit 46.1, Mean Corpuscular Volume 86, Mean Corpuscular Hemoglobin 31.1H, Mean Corpuscular Hemoglobin Concent 36.0, Red Cell Distribution Width 10.8L, Platelet Count 270, Mean Platelet Volume 5.2L, Neutrophils (%) (Auto) 50.9, Lymphocytes (%) (Auto) 33.3, Monocytes (%) (Auto) 9.6, Eosinophils (%) (Auto) 4.7H, Basophils (%) (Auto ) 1.5, Sodium Level 139, Potassium Level 3.9, Chloride Level 106, Carbon Dioxide Level 26, Anion Gap 8, Blood Urea Nitrogen 13, Creatinine 0.9, Estimat Glomerular Filtration Rate > 60, Glucose Level 89, Calcium Level 8.3L, Troponin I 0.000 Current Medications Medications (Trade) Dose Ordered Sig/Mary Lou Route PRN Reason Start Time Stop Time Status Last Admin Dose Admin Acetaminophen (Tylenol) 650 mg Q4H PRN ORAL T>100.5 04/10/18 11:45 05/10/18 11:44 04/11/18 20:16 Albuterol/ Ipratropium (Albuterol/ Ipratropium) 3 ml Q4H PRN HHN Shortness of Breath 04/10/18 11:45 04/15/18 11:44 Aspirin (ASA) 162 mg DAILY ORAL 04/11/18 09:00 05/11/18 08:59 04/12/18 08:20 Diltiazem HCl (Cardizem) 10 mg EVERY HOUR PRN IV heart rate more than 120BPM 04/10/18 11:45 05/10/18 11:44 Enalaprilat (Vasotec) 2.5 mg Q6H PRN IV sbp more than 160 04/10/18 11:45 05/10/18 11:44 Gabapentin (Neurontin) 300 mg BEDTIME ORAL 04/10/18 21:00 05/10/18 20:59 04/11/18 20:22 Heparin Sodium (Porcine) (Heparin 5000 units/ml) 5,000 units EVERY 12 HOURS SUBQ 04/10/18 21:00 05/10/18 20:59 04/12/18 08:21 Losartan Potassium (Cozaar) 50 mg DAILY ORAL 04/11/18 09:00 05/11/18 08:59 04/12/18 08:20 Morphine Sulfate (Morphine Sulfate) 2 mg Q4H PRN IVP Severe Pain (Pain Scale 7-10) 04/10/18 11:45 04/17/18 11:44 Nitroglycerin (Ntg) 0.4 mg Q5MIN X 3 DOSES PRN SL Prn Chest Pain 04/10/18 12:00 05/10/18 11:59 Ondansetron HCl (Zofran) 4 mg Q6H PRN IVP Nausea & Vomiting 04/10/18 11:45 05/10/18 11:44 Polyethylene Glycol (Miralax) 17 gm DAILYPRN PRN ORAL Constipation 04/10/18 11:45 05/10/18 11:44 Temazepam (Restoril) 15 mg HSPRN PRN ORAL Insomnia 04/10/18 21:00 04/17/18 20:59 Sree Rivera MD Apr 12, 2018 09:47
--- NOTE | 2018-04-12 14:44 | General Progress Note ---
Assessment/Plan Problem List: (1) The administrative codes within the IMO content you are accessing may have as of 03/14/2018. Please contact your IT Dept/Help Desk and request the latest Regulatory release be installed. IT Dept/Help Desk- Please refer to our FAQ page ([email or web address] or contact [employer] Customer Support at [email or web address] (2) Weak ICD Codes: R53.1 - Weakness SNOMED: 26844539 (3) Dizziness ICD Codes: R42 - Dizziness and giddiness SNOMED: 829778503, 786809769 (4) SOB (shortness of breath) ICD Codes: R06.02 - Shortness of breath SNOMED: 912112947 (5) Shingles ICD Codes: B02.9 - Zoster without complications SNOMED: 6546801 (6) Near syncope ICD Codes: R55 - Syncope and collapse SNOMED: 952249592 Status: stable, progressing Assessment/Plan dc if clear Subjective Constitutional: Reports: weakness Allergies: Coded Allergies: No Known Allergies (Unverified , 05/27/14) All Systems: reviewed and negative except above Subjective bed calm Objective Last 24 Hour Vital Signs Date Time Temp Pulse Resp B/P (MAP) Pulse Ox O2 Delivery O2 Flow Rate FiO2 04/12/18 12:00 98 04/12/18 12:00 98.1 110 20 130/98 (109) 95 04/12/18 08:57 137/92 (107) 142/94 (110) 138/95 (109) 04/12/18 08:57 108 120 127 04/12/18 08:43 Room Air 04/12/18 08:20 150/104 04/12/18 08:00 97.0 99 16 150/104 (119) 95 04/12/18 08:00 97 04/12/18 07:45 80 20 Room Air 21 04/12/18 04:00 96.8 68 19 128/56 (80) 97 04/12/18 04:00 68 04/12/18 00:00 97.2 82 18 111/62 (78) 97 04/12/18 00:00 75 04/11/18 21:00 85 97 105 04/11/18 21:00 Room Air 10/29/18 20:00 89 04/11/18 20:00 96.2 89 17 134/98 (110) 94 04/11/18 19:00 89 20 Room Air 21 04/11/18 16:00 96.4 84 18 130/45 (73) 100 04/11/18 16:00 80 Intake and Output 04/11/18 04/12/18 19:00 07:00 Intake Total 730 ml Balance 730 ml Intake Oral 730 ml # Voids 4 3 Laboratory Tests 04/12/18 06:31: White Blood Count 6.0, Red Blood Count 5.33, Hemoglobin 16.6, Hematocrit 46.1, Mean Corpuscular Volume 86, Mean Corpuscular Hemoglobin 31.1H, Mean Corpuscular Hemoglobin Concent 36.0, Red Cell Distribution Width 10.8L, Platelet Count 270, Mean Platelet Volume 5.2L, Neutrophils (%) (Auto) 50.9, Lymphocytes (%) (Auto) 33.3, Monocytes (%) (Auto) 9.6, Eosinophils (%) (Auto) 4.7H, Basophils (%) (Auto ) 1.5, Sodium Level 139, Potassium Level 3.9, Chloride Level 106, Carbon Dioxide Level 26, Anion Gap 8, Blood Urea Nitrogen 13, Creatinine 0.9, Estimat Glomerular Filtration Rate > 60, Glucose Level 89, Calcium Level 8.3L, Troponin I 0.000 Height (Feet): 5 Height (Inches): 5.00 Weight (Pounds): 180 General Appearance: alert EENT: normal ENT inspection Neck: normal alignment Cardiovascular: normal peripheral pulses, normal rate, regular rhythm Respiratory/Chest: chest wall non-tender, lungs clear, normal breath sounds Abdomen: normal bowel sounds, non tender, soft Extremities: normal inspection Edema: no edema noted Arm (L), no edema noted Arm (R), no edema noted Leg (L), no edema noted Leg (R), no edema noted Pedal (L), no edema noted Pedal (R), no edema noted Generalized Neurologic: responsive, motor weakness Skin: normal pigmentation, warm/dry Cortez Robert DO Apr 12, 2018 14:44
--- NOTE | 2018-04-12 18:00 | Cardiology Progress Note ---
Assessment/Plan Assessment/Plan 1. Dizziness, questionable balance problems versus lightheadedness. 2. Shingles recently with chronic pain related to that. 3. Hypertension. 4. Hyperlipidemia increase losaartan to 100 mg dialy see pmd with in 1weeks to adjsut med start on statin liptior 20 mg qhs Subjective Cardiovascular: Denies: chest pain, lightheadedness, palpitations Respiratory: Denies: SOB with excertion Gastrointestinal/Abdominal: Denies: abdominal pain Genitourinary: Denies: burning Subjective walked in [place] no futher issues Objective Last 24 Hour Vital Signs Date Time Temp Pulse Resp B/P (MAP) Pulse Ox O2 Delivery O2 Flow Rate FiO2 04/12/18 16:00 98.2 106 16 132/100 (111) 96 04/12/18 16:00 102 04/12/18 12:00 98 04/12/18 12:00 98.1 110 20 130/98 (109) 95 04/12/18 08:57 137/92 (107) 142/94 (110) 138/95 (109) 04/12/18 08:57 108 120 127 04/12/18 08:43 Room Air 04/12/18 08:20 150/104 04/12/18 08:00 97.0 99 16 150/104 (119) 95 04/12/18 08:00 97 04/12/18 07:45 80 20 Room Air 21 04/12/18 04:00 96.8 68 19 128/56 (80) 97 04/12/18 04:00 68 04/12/18 00:00 97.2 82 18 111/62 (78) 97 04/12/18 00:00 75 04/11/18 21:00 85 97 105 04/11/18 21:00 Room Air 04/11/18 20:00 89 04/11/18 20:00 96.2 89 17 134/98 (110) 94 04/11/18 19:00 89 20 Room Air 21 General Appearance: no apparent distress, alert Neck: supple Cardiovascular: normal rate, regular rhythm Respiratory/Chest: lungs clear Abdomen: normal bowel sounds, non tender, soft Extremities: no swelling Intake and Output 04/11/18 04/12/18 19:00 07:00 Intake Total 730 ml Balance 730 ml Intake Oral 730 ml # Voids 4 3 Laboratory Tests Test 04/12/18 06:31 White Blood Count 6.0 K/UL (4.8-10.8) Red Blood Count 5.33 M/UL (4.70-6.10) Hemoglobin 16.6 G/DL (14.2-18.0) Hematocrit 46.1 % (42.0-52.0) Mean Corpuscular Volume 86 FL (80-99) Mean Corpuscular Hemoglobin 31.1 PG (27.0-31.0) H Mean Corpuscular Hemoglobin Concent 36.0 G/DL (32.0-36.0) Red Cell Distribution Width 10.8 % (11.6-14.8) L Platelet Count 270 K/UL (150-450) Mean Platelet Volume 5.2 FL (6.5-10.1) L Neutrophils (%) (Auto) 50.9 % (45.0-75.0) Lymphocytes (%) (Auto) 33.3 % (20.0-45.0) Monocytes (%) (Auto) 9.6 % (1.0-10.0) Eosinophils (%) (Auto) 4.7 % (0.0-3.0) H Basophils (%) (Auto) 1.5 % (0.0-2.0) Sodium Level 139 MMOL/L (136-145) Potassium Level 3.9 MMOL/L (3.5-5.1) Chloride Level 106 MMOL/L (98-107) Carbon Dioxide Level 26 MMOL/L (21-32) Anion Gap 8 mmol/L (5-15) Blood Urea Nitrogen 13 mg/dL (7-18) Creatinine 0.9 MG/DL (0.55-1.30) Estimat Glomerular Filtration Rate > 60 mL/min (>60) Glucose Level 89 MG/DL (74-106) Calcium Level 8.3 MG/DL (8.5-10.1) L Troponin I 0.000 ng/mL (0.000-0.056) Liu Gambino MD Apr 12, 2018 18:00
[2018-04-13] MEDS ORDERED: Losartan 50mg tab ORAL SCH (09:00)
--- NOTE | 2018-04-14 10:28 | Discharge Summary ---
Discharge Summary Discharge Summary _ DATE OF ADMISSION: 04/10/2018 DATE OF DISCHARGE: 04/12/2018 REASON FOR ADMISSION: 58 years old male with past medical history of hypertension and heartburn was in [place]ondo[place], when he nearly passed out. Patient reported feeling weak and diaphoretic. Patient was standing at that time and needed to sit down. The episode lasted few minutes. Patient reported slight nausea, but no vomiting. No chest pain. Patient recently was treated for shingles on the left side of his chest . He still has a pain 4-5 /10 on a scale 1-10. Patient works as a sewing machine operator zipper and stated that sometimes he gets exertional chest pain , specially when its hot outside. patient with a strong family history: his father had first heart attack at age of 50 and at age of 60. Patient reported Holter monitor done 5 months ago , apparently no unusual events were seen. Patient also had a treadmill test and said that it was stable. Upon evaluation blood pressure was elevated 140/100. Troponin was negative. EKG revealed no acute ischemic changes and demonstrated sinus rhythm. Laboratory workup was unremarkable. Coagulation profile was stable, D-dimer was within normal limits. Chest x-ray revealed no acute cardiopulmonary pathology. Patient admitted with diagnoses of near syncope, postherpetic neuropathy, hypertension. CONSULTANTS: dining room coordinator Dr. Gambino pulmonary. Dr. Rivera [facility]: Patient admitted to telemetry floor. Cardiology and pulmonology consults were requested. Serial troponin were negative. EKG revealed no acute ischemic changes. Patient was ruled out for acute myocardial infarction. No evidence of arrhythmia on telemetry. No orthostatic changes. Patient was on antiplatelet therapy with aspirin. Nitroglycerin was on board as needed. Blood pressure initially elevated . Patient started on angiotensin receptor diana, and dose was uptitrated. l Blood pressure stabilized. Echocardiogram revealed preserved ejection fraction of 60-65%, no wall motion abnormalities. Lipid panel revealed mixed hyperlipidemia with elevated triglycerides, elevated total cholesterol and elevated LDL. Patient started on statin. Patient was educated on low-fat low-cholesterol cardiac diet. TSH was within normal range. CT of the head revealed no acute cardiopulmonary pathology. MRI of the brain revealed no acute intracranial pathology as well. Fall precautions were maintained. Physical and occupational therapists evaluation completed. Patient was completely independent with all activities of daily living and was not in need for skilled PT/OT services. Track Leader cleared patient for discharge. No chest pain, no dizziness, no balance issues. Patient probably have lightheadedness secondary to uncontrolled hypertension , and blood pressure stabilized with current antihypertensive medication regimen. Pain management for postherpetic neuropathy provided with Neurontin and prn analgesics. Pain was controlled. Patient was stable for discharge FINAL DIAGNOSES: Near syncope episode Lightheadedness possibly due to uncontrolled hypertension-resolved Dizziness , possible balance issues -ruled out Postherpetic neuropathy Hypertension Hyperlipidemia DISCHARGE MEDICATIONS: See Medication Reconciliation list. DISCHARGE INSTRUCTIONS: Patient was discharged home . Follow up with primary care provider in one week. I have been assigned to dictate discharge summary for this account. I was not involved in the patient's management. Shila Villagomez NP Apr 14, 2018 10:28
== END 2018-04-12 21:00 | disposition home or self-care (01) | DRG 149 ==
LOC: EMR 09:07 → 2E 09:29 → EDBEDREQ 09:35 → 2E 04-11 21:17
DX: R42 Dizziness and giddiness (principal); B02.23 Postherpetic polyneuropathy; I10 Essential (primary) hypertension; R55 Syncope and collapse; E78.5 Hyperlipidemia, unspecified; Z82.49 Family history of ischemic heart disease and other diseases of the circulatory system
CPT/HCPCS: 36415; 70450; 70551; 71045; 80048; 80053; 80061; 82550; 83880; 84443; 84484; 85025; 85379; 85610; 85730; 86140; 93005; 93306; 94664; 96360; 96361; 99285